=== PATIENT | female | born 1960 ===

== ENCOUNTER 2017-03-29 16:22 | Inpatient (IN) ==
[2017-03-29] MEDS ORDERED: CLINDAMYCIN INJ 600 MG in PREMIX 1 EACH IV STA (17:17)
--- NOTE | 2017-03-29 17:27 | Emergency Department Note ---
Ruben Rich Rolonda, am scribing for, and in the presence of, Osito Petty MD 17:23. Jovanny Rich Phillip K, MD, personally performed the services described in this documentation, ascribed by Bonnie Miranda in my presence, and it is both accurate and complete 727 . Arrival - Arrival Chief Complaint: Extremity Problem ED Nursing Triage Note: Transfer from [facility] for c/o swelling to right leg (ulcer, swelling, poss. dvt.). patient states that she is out of diabetic meds and htn meds Mode of Arrival: Stretcher Limitations: No Limitations Source: Patient, Old Records Reviewed, RN Notes Reviewed - History of Present Illness HPI Narrative: Pt is a 56 y/o female who was transferred from [facility] presents to the ED via wheelchair with c/o right leg swelling with an onset of last night. Pt has PMH of DM. SPANISHER her blood sugar was 400; at time of triage it was 221. Pt confirms subjective fever and swelling. No other complaint/pain in ED. Onset (ago): day(s) Consistency: constant Severity: moderate Severity scale (1-10): 3 Allergies/Adverse Reactions: Allergies Allergy/AdvReac Type Severity Reaction Status Date / Time No Known Allergies Allergy Unverified 07/20/16 13:30 Home Medications: Home Medications Medication Instructions Recorded Confirmed Type Aspirin [Ecotrin] 81 mg PO DAILY 07/20/16 07/20/16 History Chlorthalidone [Hygroton] 25 mg PO DAILY 07/20/16 07/20/16 History Glimepiride 4 mg PO DAILY 07/20/16 07/20/16 History Insulin Detemir [Levemir FlexPen] 20 unit SUBCUT BEDTIME 07/20/16 07/20/16 History Loperamide HCl [Loperamide] 2 mg PO Q6-8H PRN 07/20/16 07/20/16 History Metoprolol Succinate Xl [Toprol Xl] 25 mg PO BEDTIME 07/20/16 07/20/16 History Multivitamin [Multivitamins] 1 each PO DAILY 07/20/16 07/20/16 History Saxagliptin HCl [Onglyza] 10 mg PO DAILY 07/20/16 07/20/16 History Simvastatin [Zocor] 10 mg PO BEDTIME 07/20/16 07/20/16 History metFORMIN [Glucophage] 1,000 mg PO BID W/MEALS 07/20/16 07/20/16 History HYDROcodone/ACETAMIN 7.5-325 1 tablet PO Q4H PRN #30 tablet 07/22/16 Rx [[place] 7.5-325] Review of System - Review of System 12 point system: reviewed and no additional remarkable complaints except as stated - Review of System Constitutional: Present: fever (subjective). Absent: chills Respiratory: Absent: cough, respiratory distress Cardiovascular: Absent: chest pain, dyspnea on exertion Gastrointestinal: Absent: abdominal pain, nausea, vomiting, diarrhea Musculoskeletal: Present: joint swelling (right lower leg), leg pain (right lower leg pain) Medical,Surgical,& Family Hx - Medical History Cardio: History of: Hypertension Neurology: No history of: Seizures Endocrine: History of: Diabetes Mellitus (IDDM), Dyslipidemia Other: History of: MRSA (left leg) No history of: Anesthesia Reactions - Surgical History Abdominal Surgeries: Surgical HX of: Appendectomy, Cholecystectomy - Family History Family History: Reports;: Family Cancer (mother), Family Diabetes (sister), Family Hypertension (sister) - Social History Smoking Status: Current some day smoker Frequency of Alcohol Use: Occasionally Type of Drug Use: None Exam Vital Signs: Vital Signs Temperature 96.7 F L 03/29/17 17:17 Pulse Rate 60 03/29/17 17:17 Respiratory Rate 19 03/29/17 17:17 Blood Pressure 191/64 03/29/17 17:17 O2 Sat by Pulse Oximetry 97 03/29/17 16:31 - General General appearance: alert, in no apparent distress - Head Head exam: Present: atraumatic, normocephalic - Eye Eye exam: Present: normal appearance, PERRL, EOMI - ENT ENT exam: Present: mucous membranes moist. Absent: mucous membranes dry - Neck Neck exam: Present: full ROM. Absent: tenderness - Chest Chest inspection: Present: symmetric chest wall rise. Absent: tenderness - Respiratory Respiratory exam: Present: normal lung sounds bilaterally. Absent: rales - Cardiovascular Cardiovascular exam: Present: regular rate, normal rhythm, normal heart sounds. Absent: tachycardia - Abdominal Exam Abdominal exam: Present: soft, normal bowel sounds. Absent: tenderness - Extremities Exam Extremities exam: Absent: normal inspection (1cm diabetic ulcer to inner aspect of right leg medial to tibia; warmth; swelling) - Neurological Exam Neurological exam: Present: alert, oriented X3, CN II-XII intact - Psychiatric Psychiatric exam: Present: normal affect, normal mood - Skin Skin exam: Present: erythema (surrounding diabetic ulcer on inner aspect of right leg medial to tibia). Absent: intact, normal color Results - Labs Lab Results: I have reviewed the patients labs (I reviewed the labs from [facility]. She had a blood glucose of 400 and was given some insulin and her glucose on arrival here was 212. Patient had a normal white blood count. Will obtain blood cultures and start IV antibiotics. We will also get a Doppler of the right leg however I doubt DVT.) Disposition Clinical Impression: Diabetic ulcer of right lower leg, Cellulitis, Poorly controlled diabetes mellitus Case discussed with: patient Disposition: Still a Patient Condition: Guarded Additional Instructions: Admit to the hospitalist.
[2017-03-29] MEDS ORDERED: CLINDAMYCIN INJ 50 ML IV ONE (17:38)
[2017-03-29 17:41] LABS: Basophils % 0.4 % (0.0-0.8); Eosinophils # 0.1 10*3/uL (0.0-0.87); Eosinophils % 1.5 % (0.00-10.9); Hematocrit 38.5 VOL% (35.7-47.0); Hemoglobin 13.2 GM/DL (12.0-16.0); Immature Granulocytes % 0.4 %; Immature Granulocytes Absolute 0.03 #; Lymphocytes # 2.2 10*3/uL (1.4-4.0); Lymphocytes % 28.4 % (21.3-54.2); Mean Corpuscular HGB Conc 34.3 GM/DL (32-36); Mean Corpuscular Hemoglobin 31 PG (27-34); Mean Platelet Volume 10.3 FL (9.6-12.0); Monocytes # 0.7 10*3/uL (0.11-0.8); Monocytes % 9.4 % (1.7-12.7); Neutrophils # 4.7 10*3/uL (1.4-7.4); Neutrophils % 59.9 % (38.7-73.9); Platelet Count 217 T/CUMM (130-400); Red Blood Count 4.28 MC/CUMM (3.8-5.5); Red Cell Distribution Width 12.3 % (9.3-17.3); White Blood Count 7.9 T/CUMM (4-12)
[2017-03-29 17:51] LABS: Albumin 3.6 G/DL (3.4-5.0); Bilirubin,Total 0.4 MG/DL (0.2-1.0); Calcium 8.7 MG/DL (8.5-10.1); Osmolality,Calculated 291.1 MOS/KG (273-304); Potassium 3.7 MMOL/L (3.5-5.1); Total Protein 7.1 G/DL (6.4-8.3)
--- NOTE | 2017-03-29 17:51 | XRay Report ---
Portable chest Date: 03/29/2017 Clinical history: Shortness of breath, fever Comparison: 07/20/2016 Technique: Portable AP sitting chest Findings: The heart is minimally enlarged. Calcified granulomata/nodes with chronic scarring. Minimal accentuation of the pulmonary interstitium. No pleural effusion. Degenerative changes are noted with stable mediastinum. Impression: Minimal cardiomegaly with chronic scarring and findings which can be seen with mild pneumonitis. PROCEDURE INTERPRETED AT [facility] DEPARTMENT OF RADIOLOGY Final Report Signed by: Dr. Chrissie Zhu
--- NOTE | 2017-03-29 17:58 | XRay Report ---
Exam: XR tibia fibula RT Date: 03/29/2017 5:26 PM Comparison: None Indication: Leg pain, ulcer Technique:[AP and lateral right lower leg] Findings: Minimal joint space narrowing with osteophytes including calcaneal osteophytes. Soft tissue calcifications with soft tissue swelling. No fracture or dislocation. Impression: Minimal DJD with no fracture or dislocation. Calcaneal osteophytes. Soft tissue swelling/calcifications. PROCEDURE INTERPRETED AT [facility] DEPARTMENT OF RADIOLOGY Final Report Signed by: Dr. Chrissie Zhu
--- NOTE | 2017-03-29 18:45 | Hospitalist History & Physical ---
Assessment and Plan (1) Cellulitis Status: Acute Assessment and plan: We will consult wound care to evaluate the left lower leg wound. Venous Doppler studies have been ordered in the ED however results are not available. We will continue empiric antibiotic coverage and obtain wound cultures for culture and sensitivity. Current Visit: Yes (2) Diabetic ulcer of right lower leg Status: Acute Current Visit: Yes (3) Poorly controlled diabetes mellitus Status: Acute Assessment and plan: By her own admission the patient reports that she largely noncompliant. She reports that she has been out of her medications for several days. We will obtain hemoglobin A1c, start Accu-Cheks with sliding scale coverage and consult protective signal installer to assist in the management of the patient during the clinical encounter. Current Visit: Yes (4) Hypertension, essential Status: Acute Assessment and plan: Blood pressure was grossly elevated at the time of ED presentation. We will resume home medications as previously ordered. Current Visit: No History of Present Illness Chief complaint: Right leg edema History of present illness: This is a very pleasant 56-year-old female that presented to the ED at [facility] this afternoon as a lateral transfer from the [facility] for the evaluation of edema to the right lower leg. The patient has a very complex medical history significant for: Hypertension, diabetes, morbid obesity, nicotine addiction, and methicillin resistant Staphylococcus aureus. Patient has a surgical history significant for appendectomy and cholecystectomy. The patient reported the onset of symptoms on last night. She noted that her right leg started to swell excessively and became very painful. In addition, the patient reported that she is out of all of her normal medications. She decided to present to the emergency room at the [facility] for further evaluation. The patient was seen and assessed there. At the time of ED presentation at the [facility], the patient was noted to be grossly hyperglycemic with a blood sugar of 400. There was concern for possible deep vein thrombosis. The patient was subsequently transferred to [facility] for further evaluation. The patient was assessed at the time of ED presentation. Her blood glucose close level was noted at 221. She was also noted to be grossly hypertensive with a blood pressure noted at 191/64. Labs were obtained; complete blood cell count was essentially unremarkable; WBCs were noted at 7.9, hemoglobin 13.2, hematocrit 38.5, and platelet count at 217. Chemistry panel reported a sodium at 142, potassium 3.7, chloride 109, carbon dioxide 27, BUN 20, creatinine 0.7, and glucose at 204. Chest x-ray reported minimal cardiomegaly with chronic scarring of findings which could be seen with mild pneumonitis. No pleural effusion or degenerative changes were noted with stable mediastinum. Right tibia-fibula x-ray was obtained which reported minimal degenerative joint disease with no fracture or dislocation, calcaneal osteophytes, and soft tissue swelling/calcifications. After brief discussion with both Dr. Petty and Dr. Doshi, the patient will be admitted to the hospitalist services for continuation of care. Home Medications Medication Instructions Recorded Confirmed Type Aspirin [Ecotrin] 81 mg PO DAILY 07/20/16 07/20/16 History Chlorthalidone [Hygroton] 25 mg PO DAILY 07/20/16 07/20/16 History Glimepiride 4 mg PO DAILY 07/20/16 07/20/16 History Insulin Detemir [Levemir FlexPen] 20 unit SUBCUT BEDTIME 07/20/16 07/20/16 History Loperamide HCl [Loperamide] 2 mg PO Q6-8H PRN 07/20/16 07/20/16 History Metoprolol Succinate Xl [Toprol Xl] 25 mg PO BEDTIME 07/20/16 07/20/16 History Multivitamin [Multivitamins] 1 each PO DAILY 07/20/16 07/20/16 History Saxagliptin HCl [Onglyza] 10 mg PO DAILY 07/20/16 07/20/16 History Simvastatin [Zocor] 10 mg PO BEDTIME 07/20/16 07/20/16 History metFORMIN [Glucophage] 1,000 mg PO BID W/MEALS 07/20/16 07/20/16 History HYDROcodone/ACETAMIN 7.5-325 1 tablet PO Q4H PRN #30 tablet 07/22/16 Rx [[place] 7.5-325] Allergies Allergy/AdvReac Type Severity Reaction Status Date / Time No Known Allergies Allergy Unverified 07/20/16 13:30 Medical,Surgical,& Family Hx - Medical History Cardio: History of: Hypertension Neurology: No history of: Seizures Endocrine: History of: Diabetes Mellitus (IDDM), Dyslipidemia Other: History of: MRSA (left leg) No history of: Anesthesia Reactions - Surgical History Abdominal Surgeries: Surgical HX of: Appendectomy, Cholecystectomy - Family History Family History: Reports;: Family Cancer (mother), Family Diabetes (sister), Family Hypertension (sister) - Social History Smoking Status: Current some day smoker Frequency of Alcohol Use: Occasionally Type of Drug Use: None 12 point system: reviewed and no additional remarkable complaints except as stated Exam - Constitutional Vitals: Period Temp Pulse Resp BP Sys/Wild Pulse Ox Last 24 Hr 96.7 F-96.7 F 54-60 17-19 148-191/54-64 97-99 General appearance: morbidly obese - Head Head exam: Present: normal inspection, normocephalic, atraumatic - Eye Eye exam: Present: EOMI. Absent: conjunctival injection, nystagmus Pupils: Present: MATTHEW, normal accommodation - ENT ENT exam: Present: normal exam, normal external ear exam, normal oropharynx - Neck Neck exam: Present: normal inspection. Absent: lymphadenopathy, meningismus, thyromegaly - Respiratory Respiratory exam: Present: clear to auscultation bilaterally - Cardiovascular Cardiovascular exam: Present: regular rate and rhythm. Absent: carotid bruit, diastolic murmur, gallop, JVD, rubs, systolic murmur - GI/Abdominal GI/Abdominal exam: Present: normal bowel sounds, soft - Extremities Exam Extremities exam: Present: other (Diabetic ulceration noted to the right leg) - Back Exam Back exam: Present: normal inspection - Neurological Exam Neurological exam: Present: alert, oriented X3, CN II-XII intact - Psychiatric Psychiatric exam: Present: normal mood - Skin Skin exam: Present: warm, dry Results - Labs CBC & BMP: 03/29/17 17:04 03/29/17 17:04 Lab Results: I have reviewed the past 24 hour labs
[2017-03-29] MEDS ORDERED: DEXTROSE 50% 25 GM/50 ML VIAL IV PRN (18:51)
[2017-03-29] MEDS ORDERED: NICOTINE 21 MG/24 HR PATCH TRANSDERM PRN (18:51)
[2017-03-29] MEDS ORDERED: GLUCAGON 1 MG VIAL IM PRN (18:51)
--- NOTE | 2017-03-29 19:28 | Ultrasound Report ---
Exam: Right lower extremity venous Doppler/duplex ultrasound Comparison: 03/01/2012 Clinical history: Right leg pain Technique: Duplex scan of the right lower extremity veins using th B- mode/grayscale imaging and Dopplers spectral analysis and color flow. Findings: There is normal compression and augmentation of the right common femoral, superficial femoral and popliteal veins. The proximal right greater saphenous veins appear to be patent. Major venous structures of the right lower extremity demonstrating normal course and caliber with normal color-flow study and spectral analysis. Impression: No evidence to suggest deep venous thrombosis within the right lower extremity. Ultrasound images were captured and stored. PROCEDURE INTERPRETED AT [facility] DEPARTMENT OF RADIOLOGY Final Report Signed by: Dr. Chrissie Zhu
[2017-03-29] MEDS: INSULIN REGULAR 100 UNIT/ML SUBCUT SCH (22:51)
[2017-03-29] MEDS: ENOXAPARIN 40 MG/0.4 ML SYRINGE SUBCUT SCH (22:54)
[2017-03-29] MEDS: DOCUSATE SODIUM 100 MG CAPSULE PO SCH (22:54)
[2017-03-29] MEDS: cefTRIAXone 1,000 MG in SODIUM CHLORIDE 0.9% 100 ML IV SCH (22:55)
[2017-03-29] MEDS: SODIUM CHLORIDE 0.9% 1,000 ML IV SCH (22:58)
[2017-03-30] MEDS: CLINDAMYCIN INJ 600 MG in PREMIX 1 EACH IV SCH ×3 (02:05→17:04)
[2017-03-30 05:12] LABS: Basophils % 0.3 % (0.0-0.8); Eosinophils # 0.1 10*3/uL (0.0-0.87); Eosinophils % 1.8 % (0.00-10.9); Hematocrit 35.2 VOL% (35.7-47.0); Immature Granulocytes % 0.4 %; Immature Granulocytes Absolute 0.03 #; Lymphocytes # 2.4 10*3/uL (1.4-4.0); Lymphocytes % 35.4 % (21.3-54.2); Mean Corpuscular HGB Conc 34.1 GM/DL (32-36); Mean Corpuscular Hemoglobin 31 PG (27-34); Mean Corpuscular Volume 90.3 FL (87-102); Mean Platelet Volume 10.4 FL (9.6-12.0); Monocytes # 0.6 10*3/uL (0.11-0.8); Monocytes % 9.4 % (1.7-12.7); Neutrophils # 3.5 10*3/uL (1.4-7.4); Neutrophils % 52.7 % (38.7-73.9); Platelet Count 186 T/CUMM (130-400); Red Cell Distribution Width 12.4 % (9.3-17.3); White Blood Count 6.7 T/CUMM (4-12)
[2017-03-30 05:56] LABS: Albumin 2.8 G/DL (3.4-5.0); Bilirubin,Total 0.4 MG/DL (0.2-1.0); Calcium 8.1 MG/DL (8.5-10.1); Magnesium 2.1 MG/DL (1.8-2.4); Osmolality,Calculated 300.8 MOS/KG (273-304); Risk Ratio 3.71; Thyroid Stimulating Hormone 2.62 uIU/ml (0.358-3.74); Total Protein 5.9 G/DL (6.4-8.3); VLDL CHOLESTEROL 27.2 MG/DL
[2017-03-30] MEDS: INSULIN REGULAR 100 UNIT/ML SUBCUT SCH ×4 (09:01→21:36)
[2017-03-30] MEDS: SODIUM CHLORIDE 0.9% 1,000 ML IV SCH ×3 (09:02→18:23)
[2017-03-30] MEDS: PANTOPRAZOLE 40 MG TABLET PO SCH (09:02)
[2017-03-30] MEDS: DOCUSATE SODIUM 100 MG CAPSULE PO SCH ×2 (09:02→21:38)
--- NOTE | 2017-03-30 09:14 | Hospitalist Progress Note ---
<Ghislaine Barrera - Last Filed: 03/30/17 09:11> Assessment and Plan (1) Cellulitis Status: Acute Assessment and plan: We will consult wound care to evaluate the right lower leg wound. Venous Doppler studies have been ordered in the ED however results are not available. We will continue empiric antibiotic coverage and obtain wound cultures for culture and sensitivity. 03/30-venous Doppler studies were negative for DVT in the right lower leg. Wound care has been consulted to evaluate the right lower leg wound. We will continue empiric antibiotic coverage. Current Visit: Yes (2) Diabetic ulcer of right lower leg Status: Acute Assessment and plan: Ulceration of the right lower leg is chronic in nature. We will continue empiric antibiotic coverage and consult wound care to evaluate and advise. Current Visit: Yes (3) Poorly controlled diabetes mellitus Status: Acute Assessment and plan: By her own admission the patient reports that she largely noncompliant. She reports that she has been out of her medications for several days. We will obtain hemoglobin A1c, start Accu-Cheks with sliding scale coverage and consult family living educator to assist in the management of the patient during the clinical encounter. 03/30-hemoglobin A1c was noted at 9.5; which is evidence suggesting noncompliance. Fasting blood sugar this a.m. was noted at 324. We will restart Levemir 20 units at bedtime and continue Accu-Cheks with sliding scale coverage. Current Visit: Yes (4) Hypertension, essential Status: Acute Assessment and plan: Blood pressure was grossly elevated at the time of ED presentation. We will resume home medications as previously ordered. Current Visit: No Hospitalist: Subjective Interval history: Patient seen and examined; chart reviewed. No significant overnight events. Hemoglobin A1c was noted at 9.5. Blood sugars were markedly elevated throughout the night with fasting blood sugar noted at 324. Exam - Constitutional Vitals: Period Temp Pulse Resp BP Sys/Wild Pulse Ox Last 24 Hr 96.7 F-97.4 F 54-60 17-20 148-194/54-73 97-99 General appearance: morbidly obese - Head Head exam: Present: normal inspection, normocephalic, atraumatic - Eye Eye exam: Present: EOMI, conjunctival injection Pupils: Present: MATTHEW, normal accommodation - ENT ENT exam: Present: normal exam, normal external ear exam, normal oropharynx - Neck Neck exam: Present: normal inspection, lymphadenopathy, meningismus, thyromegaly - Respiratory Respiratory exam: Present: clear to auscultation bilaterally. Absent: rales, rhonchi, stridor, wheezes - Cardiovascular Cardiovascular exam: Present: regular rate and rhythm. Absent: bradycardia, carotid bruit, diastolic murmur, JVD, systolic murmur - GI/Abdominal GI/Abdominal exam: Present: normal bowel sounds, soft - Extremities Exam Extremities exam: Present: edema (+2 edema noted to the right lower leg), other (Ulceration noted to right lower leg) - Back Exam Back exam: Present: normal inspection - Neurological Exam Neurological exam: Present: alert, oriented X3, CN II-XII intact - Psychiatric Psychiatric exam: Present: normal affect, normal mood - Skin Skin exam: Present: normal color, warm, other (Ulceration noted to right lower leg) Results - Labs CBC & BMP: 03/30/17 04:52 03/30/17 04:52 Lab Results: I have reviewed the past 24 hour labs Quality Measures - VTE Contraindication to Mechanical VTE Prophylaxis: Vascular Ulceration <Eduardo Rollins - Last Filed: 03/30/17 13:23> Hospitalist: Subjective Interval history: Patient seen and examined independently of HONORIO Barrera, agree with assessment and plan as documented. Patient without complaints. Reports that her leg looks better to her. Exam - Constitutional Vitals: Period Temp Pulse Resp BP Sys/Wild Pulse Ox Last 24 Hr 96.4 F-98.6 F 52-70 17-20 126-194/54-75 96-99 Results - Labs CBC & BMP: 03/30/17 04:52 03/30/17 04:52
[2017-03-30] MEDS ORDERED: SKIN HEALING OINT (AQUAPHOR) 50 GM TUBE TOP PRN (14:58)
[2017-03-30] MEDS ORDERED: METOPROLOL SUCCINATE XL 25 MG TABLET PO SCH (21:00)
[2017-03-30] MEDS ORDERED: INSULIN GLARGINE 100 UNIT/ML SUBCUT SCH ×2 (21:00)
[2017-03-30] MEDS: ENOXAPARIN 40 MG/0.4 ML SYRINGE SUBCUT SCH (21:36)
[2017-03-30] MEDS: cefTRIAXone 1,000 MG in SODIUM CHLORIDE 0.9% 100 ML IV SCH (21:37)
[2017-03-31] MEDS: CLINDAMYCIN INJ 600 MG in PREMIX 1 EACH IV SCH ×2 (03:06→12:36)
[2017-03-31] MEDS: SODIUM CHLORIDE 0.9% 1,000 ML IV SCH (03:08)
[2017-03-31 05:39] LABS: Basophils % 0.3 % (0.0-0.8); Eosinophils # 0.1 10*3/uL (0.0-0.87); Eosinophils % 2.2 % (0.00-10.9); Hematocrit 35.3 VOL% (35.7-47.0); Hemoglobin 11.9 GM/DL (12.0-16.0); Immature Granulocytes % 0.2 %; Immature Granulocytes Absolute 0.01 #; Lymphocytes # 2.6 10*3/uL (1.4-4.0); Lymphocytes % 40.3 % (21.3-54.2); Mean Corpuscular HGB Conc 33.7 GM/DL (32-36); Mean Corpuscular Hemoglobin 31 PG (27-34); Mean Corpuscular Volume 90.7 FL (87-102); Mean Platelet Volume 10.8 FL (9.6-12.0); Monocytes # 0.6 10*3/uL (0.11-0.8); Monocytes % 8.5 % (1.7-12.7); Neutrophils # 3.2 10*3/uL (1.4-7.4); Neutrophils % 48.5 % (38.7-73.9); Platelet Count 210 T/CUMM (130-400); Red Blood Count 3.89 MC/CUMM (3.8-5.5); Red Cell Distribution Width 12.7 % (9.3-17.3); White Blood Count 6.5 T/CUMM (4-12)
[2017-03-31 06:00] LABS: Calcium 8.3 MG/DL (8.5-10.1); Magnesium 2.1 MG/DL (1.8-2.4); Osmolality,Calculated 293.7 MOS/KG (273-304)
[2017-03-31] MEDS ORDERED: MULTIVITAMIN (CENTRUM) TABLET PO SCH (09:00)
[2017-03-31] MEDS: INSULIN REGULAR 100 UNIT/ML SUBCUT SCH ×2 (09:04→12:37)
[2017-03-31] MEDS: DOCUSATE SODIUM 100 MG CAPSULE PO SCH (09:05)
[2017-03-31] MEDS: PANTOPRAZOLE 40 MG TABLET PO SCH (09:05)
--- NOTE | 2017-03-31 10:06 | Discharge Summary ---
<Ghislaine Barrera - Last Filed: 03/31/17 09:58> Hospital Course - Hospital Course Hospital Course: This is a very pleasant 56-year-old female that presented to the ED at [facility] this afternoon as a lateral transfer from the [facility] for the evaluation of edema to the right lower leg. The patient has a very complex medical history significant for: Hypertension, diabetes, morbid obesity, nicotine addiction, and methicillin resistant Staphylococcus aureus. Patient has a surgical history significant for appendectomy and cholecystectomy. The patient reported the onset of symptoms on last night. She noted that her right leg started to swell excessively and became very painful. In addition, the patient reported that she is out of all of her normal medications. She decided to present to the emergency room at the [facility] for further evaluation. The patient was seen and assessed there. At the time of ED presentation at the [facility], the patient was noted to be grossly hyperglycemic with a blood sugar of 400. There was concern for possible deep vein thrombosis. The patient was subsequently transferred to [facility] for further evaluation. The patient was assessed at the time of ED presentation. Her blood glucose close level was noted at 221. She was also noted to be grossly hypertensive with a blood pressure noted at 191/64. Labs were obtained; complete blood cell count was essentially unremarkable; WBCs were noted at 7.9, hemoglobin 13.2, hematocrit 38.5, and platelet count at 217. Chemistry panel reported a sodium at 142, potassium 3.7, chloride 109, carbon dioxide 27, BUN 20, creatinine 0.7, and glucose at 204. Chest x-ray reported minimal cardiomegaly with chronic scarring of findings which could be seen with mild pneumonitis. No pleural effusion or degenerative changes were noted with stable mediastinum. Right tibia-fibula x-ray was obtained which reported minimal degenerative joint disease with no fracture or dislocation, calcaneal osteophytes, and soft tissue swelling/calcifications. She was admitted to the hospitalist services for continuation of care. Empiric antibiotics were initiated. A wound care consultation was ordered. Hemoglobin A1c was noted at 9.5; consultation was made to the informatics educator. The patient's condition gradually improved. The patient has not experienced any significant overnight events. Her vital signs are stable. Today, we feel that she is indeed appropriate for discharge to follow-up with her primary care physician and wound care clinic as directed. Diagnosis - Discharge Diagnosis (1) Cellulitis Status: Acute (2) Diabetic ulcer of right lower leg Status: Acute (3) Poorly controlled diabetes mellitus Status: Acute (4) Hypertension, essential Status: Acute Discharge Plan - Discharge Data Disposition: Disch To Home/Self Care - Discharge Medications New Clindamycin Cap [Cleocin Cap] 600 mg PO Q8HR #30 capsule HYDROcodone/ACETAMIN 5-325 [[place] 5-325] 1 tablet PO Q4H PRN #20 tablet PRN Reason: Pain Mild (1-3) Continue Simvastatin [Zocor] 10 mg PO BEDTIME Saxagliptin HCl [Onglyza] 10 mg PO DAILY metFORMIN [Glucophage] 1,000 mg PO BID W/MEALS Metoprolol Succinate Xl [Toprol Xl] 25 mg PO BEDTIME Glimepiride 4 mg PO DAILY Aspirin [Ecotrin] 81 mg PO DAILY Insulin Detemir [Levemir FlexPen] 20 unit SUBCUT BEDTIME Multivitamin [Multivitamins] 1 each PO DAILY - Follow Up or Referral - Forms/Instructions Exam - Constitutional Vitals: Period Temp Pulse Resp BP Sys/Wild Pulse Ox Last 24 Hr 96.4 F-98.1 F 51-70 16-20 125-157/60-77 94-98 Discharge Results Procedures and tests throughout hospitalization: Pending Orders 03/29/17 17:53 Blood Culture Stat Labs on day of discharge: Labs from last 24 hours 03/31/17 03/31/17 03/31/17 07:15 04:26 04:26 WBC 6.5 RBC 3.89 Hgb 11.9 L Hct 35.3 L MCV 90.7 MCH 31 MCHC 33.7 RDW 12.7 Plt Count 210 MPV 10.8 Neut % (Auto) 48.5 Lymph % (Auto) 40.3 Mclennan % (Auto) 8.5 Eos % (Auto) 2.2 Baso % (Auto) 0.3 Neut # (Auto) 3.2 Lymph # (Auto) 2.6 Mclennan # (Auto) 0.6 Eos # (Auto) 0.1 Baso # (Auto) 0.0 Immature Gran % 0.2 Nucleated RBC % 0.0 Immature Gran # 0.01 Nucleated RBCs # 0.00 Sodium 145 Potassium 4.0 Chloride 111 H Carbon Dioxide 26 Anion Gap 12.0 BUN 17 Creatinine 0.70 GFR Calculation 118 BUN/Creatinine Ratio 24.00 H Glucose 168 H POC Glucose 199 H Calculated Osmolality 293.7 Calcium 8.3 L Magnesium 2.1 03/30/17 03/30/17 03/30/17 21:23 15:56 11:34 WBC RBC Hgb Hct MCV MCH MCHC RDW Plt Count MPV Neut % (Auto) Lymph % (Auto) Mclennan % (Auto) Eos % (Auto) Baso % (Auto) Neut # (Auto) Lymph # (Auto) Mclennan # (Auto) Eos # (Auto) Baso # (Auto) Immature Gran % Nucleated RBC % Immature Gran # Nucleated RBCs # Sodium Potassium Chloride Carbon Dioxide Anion Gap BUN Creatinine GFR Calculation BUN/Creatinine Ratio Glucose POC Glucose 260 H 297 H 239 H Calculated Osmolality Calcium Magnesium Preliminary micro results at discharge 03/29/17 17:53 Blood Culture - Preliminary Blood No growth at 1 day 03/29/17 18:15 Blood Culture - Preliminary Blood No growth at 1 day DS: Provider Date of admission: 03/29/17 18:32 Primary care physician: Clarisas Villanueva MD Attending physician on admission: Dale Barroso MD Consults: 03/29/17 18:53 Consult to Diabetes Center, Educator [CONS] Routine Reason for Sap Bods Developer: Diabetes Education Consult to Wound Care [facility] [CONS] Routine Reason for Wound Care: Wound Care Management 03/29/17 21:25 Consult to Pastoral Services [CONS] Routine Comment: Pastoral Screen: Declines Visit Request Disposal Operator Visit Gabby Issues Discharging clinician: Ghislaine Barrera CNP <Eduardo Rollins - Last Filed: 03/31/17 10:58> Hospital Course - Time spent with patient Time with patient DS: Less than 30 minutes (28) Diagnosis - Discharge Diagnosis (1) DM2 (diabetes mellitus, type 2) Status: Chronic (2) Hypertension, essential Status: Chronic (3) Cellulitis Status: Resolved Discharge Plan - Discharge Data Condition at Discharge: Stable Discharge Diet: diabetic diet, low salt diet Activity: resume usual activities as tolerated Hygiene: no restrictions Weight Bearing at Discharge: weight bear as tolerated Driving: no restrictions Contact your physician if you experience:: fever over 101, Redness or swelling Exam - Constitutional General appearance: over weight - Head Head exam: Present: normocephalic, atraumatic - Eye Eye exam: Present: EOMI Pupils: Present: MATTHEW - ENT ENT exam: Present: normal exam - Neck Neck exam: Present: normal inspection - Respiratory Respiratory exam: Present: clear to auscultation bilaterally. Absent: rhonchi, wheezes - Cardiovascular Cardiovascular exam: Present: regular rate and rhythm - GI/Abdominal GI/Abdominal exam: Present: normal bowel sounds, soft. Absent: tenderness, rebound - Extremities Exam Extremities exam: Present: other (RLE with improvement of erythema) - Back Exam Back exam: Present: normal inspection - Neurological Exam Neurological exam: Present: alert, oriented X3 - Psychiatric Psychiatric exam: Present: normal affect, normal mood - Skin Skin exam: Present: warm, intact
[2017-03-31 12:48] VITALS: BP 186/75
== END 2017-03-31 13:27 | disposition home or self-care (01) | DRG 638 ==
LOC: EDUNIT# → EDBD → N.ED 16:22 → SUATTDRO 18:32 → N.EDINP 18:32 → N.5E 19:30
PROVIDERS: ADMIT Family Medicine; ATTEND Internal Medicine

== ENCOUNTER 2017-05-21 15:46 | Inpatient (IN) ==
--- NOTE | 2017-05-21 16:39 | Emergency Department Note ---
Arrival - Arrival Chief Complaint: Extremity Problem ED Nursing Triage Note: pt c/o pain and edema to right leg distal to knee x 2 weeks. pt also c/o left hip pain. denies injury. pt was hospitalized 1 month ago for same complaint of RLE. pt also c/o chills and fever today. Mode of Arrival: Stretcher Source: Patient, EMS, Old Records Reviewed, RN Notes Reviewed Time Seen by Provider: 05/21/17 16:20 - History of Present Illness HPI Narrative: The patient is a poor and inconsistent historian. She complains of right knee and lower leg pain and swelling. Onset is unclear. At one point she told me it started yesterday, at another point, 5 days ago and at another, 2 weeks ago. She also complains of left hip pain. Onset of that is unclear as well but sounds like it was prior to the knee pain. She denies any history of injury. She has apparently been admitted here before for similar complaints. She has had some chills and fever with a cough today. She cannot tell me whether or not she has been short of breath. She says that somebody told her she was but she does not know. Allergies/Adverse Reactions: Allergies Allergy/AdvReac Type Severity Reaction Status Date / Time No Known Allergies Allergy Verified 05/21/17 16:04 Home Medications: Home Medications Medication Instructions Recorded Confirmed Type Aspirin [Ecotrin] 81 mg PO DAILY 07/20/16 05/21/17 History Glimepiride 4 mg PO DAILY 07/20/16 05/21/17 History Insulin Detemir [Levemir FlexPen] 20 unit SUBCUT BEDTIME 07/20/16 05/21/17 History Metoprolol Succinate Xl [Toprol Xl] 25 mg PO BEDTIME 07/20/16 05/21/17 History Multivitamin [Multivitamins] 1 each PO DAILY 07/20/16 05/21/17 History Saxagliptin HCl [Onglyza] 10 mg PO DAILY 07/20/16 05/21/17 History Simvastatin [Zocor] 10 mg PO BEDTIME 07/20/16 05/21/17 History metFORMIN [Glucophage] 1,000 mg PO BID W/MEALS 07/20/16 05/21/17 History Clindamycin Cap [Cleocin Cap] 600 mg PO Q8HR #30 capsule 03/31/17 05/21/17 Rx HYDROcodone/ACETAMIN 5-325 [[place] 1 tablet PO Q4H PRN #20 tablet 03/31/17 Rx 5-325] Review of System - Review of System 12 point system: reviewed and no additional remarkable complaints except as stated - Review of System Constitutional: Present: chills, fever Head/Ears/Nose/Throat: Absent: nasal drainage, sore throat Respiratory: Present: cough Cardiovascular: Present: chest pain (Sternal, with deep inspiration only) Gastrointestinal: Present: abdominal pain (Left lower quadrant), diarrhea. Absent: nausea, vomiting Musculoskeletal: Present: back pain, leg pain Medical,Surgical,& Family Hx - Medical History Cardio: History of: Hypertension Psychological: No history of: Anxiety Disorders, ADHD, Behavior Problems, Bipolar Disorder, Depression, Previous Suicide Attempt, Psychiatric/Substance Abuse Tx, Schizophrenia, Violent Behavior, Psychiatric Problems Neurology: No history of: Seizures Endocrine: History of: Diabetes Mellitus (IDDM), Dyslipidemia Other: History of: MRSA (left leg) No history of: Anesthesia Reactions - Surgical History Abdominal Surgeries: Surgical HX of: Appendectomy, Cholecystectomy - Family History Family History: Reports;: Family Cancer (mother), Family Diabetes (sister), Family Hypertension (sister) - Social History Smoking Status: Current some day smoker Frequency of Alcohol Use: None Type of Drug Use: None Exam Physical Examination: GENERAL: Alert. No acute distress. HEENT: Normocephalic and atraumatic. There is no nasal drainage. No pharyngeal erythema or exudate. NECK: Normal inspection. Supple. No lymphadenopathy or meningismus. LUNGS: No respiratory distress. Clear to auscultation bilaterally, no wheezes, rales or rhonchi. HEART: Regular rate and rhythm. ABDOMEN: Soft, obese, nondistended with normal bowel sounds. Minimal left lower quadrant tenderness without guarding or rebound. BACK: Normal inspection. SKIN: Color normal. Warm and dry. EXTREMITIES: The right lower extremity is tender from the knee to the ankle. It may be slightly larger than the left. The skin color is darker but she has some chronic hyperpigmentation there and it is difficult to detect erythema. The left leg is warmer than the right. The calf is tender and Homans sign is positive. Range of motion in the knee and ankle is full and the distal extremity is neurovascularly intact. There is some mild, inconsistent tenderness over the left hip. No discoloration or deformity noted. Range of motion is full. The distal extremity is neurovascularly intact. NEUROLOGICAL/PSYCHIATRIC: Alert and oriented -3 with normal mood and affect. Cranial nerves normal. No motor or sensory deficit. Vital Signs: Vital Signs Temperature 100.2 F H 05/21/17 20:17 Pulse Rate 87 05/21/17 20:11 Respiratory Rate 20 05/21/17 20:11 Blood Pressure 148/72 05/21/17 20:11 O2 Sat by Pulse Oximetry 95 05/21/17 20:11 Course Course Narrative: Note: The multiple negatives in the past medical history were not marked by me. They are the result of the triage process, past medical records or other unknown causes. Due to time constraints, these were not all reviewed with the patient and the backslashes were not removed from the chart. They should be ignored. - Reevaluation(s) Reevaluation #1: Urine is still pending at this point. She does have some warmth, mild erythema and tenderness to the right lower leg. White count is slightly elevated and she is febrile. I think this is cellulitis that has recurred. I discussed patient with the hospitalist who will see her and admit. Time: 20:25 Results - Labs CBC & BMP: 05/21/17 17:00 05/21/17 17:00 Lab Results: I have reviewed the patients labs - Impressions Chest x-ray shows mild airways disease such as with bronchitis. Doppler shows no evidence of DVT. Disposition Clinical Impression: Cellulitis Case discussed with: patient Disposition: Still a Patient Condition: Stable Time of Disposition: 20:31
[2017-05-21 17:10] LABS: Basophils % 0.3 % (0.0-0.8); Eosinophils % 0.1 % (0.00-10.9); Hematocrit 38.8 VOL% (35.7-47.0); Hemoglobin 13.5 GM/DL (12.0-16.0); Immature Granulocytes % 0.5 %; Immature Granulocytes Absolute 0.06 #; Lymphocytes # 1.1 10*3/uL (1.4-4.0); Lymphocytes % 8.2 % (21.3-54.2); Mean Corpuscular HGB Conc 34.8 GM/DL (32-36); Mean Corpuscular Hemoglobin 31 PG (27-34); Mean Platelet Volume 9.8 FL (9.6-12.0); Monocytes # 0.9 10*3/uL (0.11-0.8); Monocytes % 6.6 % (1.7-12.7); Neutrophils # 10.9 10*3/uL (1.4-7.4); Neutrophils % 84.3 % (38.7-73.9); Platelet Count 195 T/CUMM (130-400); Red Blood Count 4.36 MC/CUMM (3.8-5.5); Red Cell Distribution Width 12.5 % (9.3-17.3)
[2017-05-21 17:34] LABS: Albumin 3.5 G/DL (3.4-5.0); Bilirubin,Total 0.4 MG/DL (0.2-1.0); Calcium 8.5 MG/DL (8.5-10.1); Osmolality,Calculated 282.5 MOS/KG (273-304); Potassium 3.6 MMOL/L (3.5-5.1); Total Protein 7.1 G/DL (6.4-8.3)
--- NOTE | 2017-05-21 17:42 | Ultrasound Report ---
US venous doppler LE RT Indication: Right leg pain and swelling. UNILATERAL (RIGHT) LOWER EXTREMITY VENOUS ULTRASOUND Comparison: 03/29/2017 Findings: Graded grayscale compression, color Doppler and pulsed Doppler ultrasound evaluation of the venous structures performed. Normal compressibility, augmentation and color saturation is present within the right common femoral, superficial femoral, popliteal and proximal greater saphenous veins. Impression: No evidence of DVT. PROCEDURE INTERPRETED AT [facility] DEPARTMENT OF RADIOLOGY Final Report Signed by: Sid Tom M.D.
--- NOTE | 2017-05-21 19:55 | XRay Report ---
XR chest 1V portable Indication: Cough and fever. Chest one view: Comparison 03/29/2017. Heart size is normal. Mediastinal contours unremarkable. No infiltrates are shown. Scattered calcified granulomata and pulmonary hypoinflation noted. There is an element of mild peribronchial thickening centrally. Impression: Mild airways disease such as bronchitis or viral syndrome. PROCEDURE INTERPRETED AT [facility] DEPARTMENT OF RADIOLOGY Final Report Signed by: Sid Tom M.D.
[2017-05-21] MEDS ORDERED: ACETAMINOPHEN 500 MG TABLET ONE (20:14)
[2017-05-21] MEDS ORDERED: ACETAMINOPHEN 500 MG TABLET PO STA (20:17)
[2017-05-21] MEDS ORDERED: MORPHINE 2 MG/1 ML SYRINGE IV PRN (20:29)
[2017-05-21] MEDS ORDERED: PROMETHAZINE 25 MG/1 ML VIAL IM PRN (20:29)
[2017-05-21] MEDS ORDERED: GLUCAGON 1 MG VIAL IM PRN (20:29)
[2017-05-21] MEDS ORDERED: ONDANSETRON 4 MG/2 ML VIAL IV PRN (20:29)
[2017-05-21] MEDS ORDERED: DOCUSATE SODIUM 100 MG CAPSULE PO PRN (20:29)
[2017-05-21] MEDS ORDERED: ZALEPLON 5 MG CAPSULE PO PRN (20:29)
[2017-05-21] MEDS ORDERED: ACETAMINOPHEN 325 MG TABLET PO PRN (20:29)
[2017-05-21] MEDS ORDERED: DEXTROSE 50% 25 GM/50 ML SYRINGE IV PRN (20:29)
[2017-05-21 20:40] LABS: Apearance,Urine CLEAR (Clear); Bacteria,Urine Few /HPF (Few); Bilirubin,Urine Negative (Negative); Blood, Urine Negative (Negative); Glucose,Urine (UA) 150 mg/dL (Negative); Ketones,Urine Negative (Negative); Mucus,Urine Occasional /LPF (Occasional); Nitrite,Urine Positive (Negative); Protein,Urine Negative; RBC,Urine 1 /HPF (0-4); Squamous Epithelial Cell,Urine Occasional /HPF (0-10); Urine Color Yellow (Yellow); Urine Specific Gravity 1.015 (1.001-1.035); Urine Urobilinogen < 2.0 EU/DL (0.2-1.0); WBC,Urine 1 /HPF (0-6)
--- NOTE | 2017-05-21 20:41 | Hospitalist History & Physical ---
Assessment and Plan - Time spent with patient Time spent with patient: Greater than 30 minutes (1) Cellulitis Status: Resolved Assessment and plan: Patient will be admitted for IV antibiotic therapy for right lower extremity cellulitis. She does not meet criteria for sepsis at this time. Will provide pain control and local care. Current Visit: No (2) DM2 (diabetes mellitus, type 2) Status: Chronic Assessment and plan: We will continue her routine home medical therapy with Accu-Cheks and sliding scale insulin. Current Visit: No Qualifiers: Diabetes mellitus complication status: with hyperglycemia Diabetes mellitus group home insulin use: with group home use Qualified Code(s): E11.65 - Type 2 diabetes mellitus with hyperglycemia (3) Hypertension, essential Status: Chronic Assessment and plan: Currently hemodynamically stable. We will continue her current medical regimen. Current Visit: No History of Present Illness Chief complaint: Right leg pain and swelling History of present illness: Ms. Carpenter is a 56 year old female who was hospitalized in March for cellulitis of her lower extremity. She states over the past 2 weeks she has noted increased swelling redness and fever of her right lower extremity. She states that she did not go to the clinic or seek care because they are always closed. She denies any recent antibiotic therapy. She has had some nausea but no vomiting. She had an episode of diarrhea last Tuesday which is resolved. She denies any chest pain, shortness breath, cough, sputum production , dysuria, hematuria, seizures, syncope. Home Medications Medication Instructions Recorded Confirmed Type Aspirin [Ecotrin] 81 mg PO DAILY 07/20/16 05/21/17 History Glimepiride 4 mg PO DAILY 07/20/16 05/21/17 History Insulin Detemir [Levemir FlexPen] 20 unit SUBCUT BEDTIME 07/20/16 05/21/17 History Metoprolol Succinate Xl [Toprol Xl] 25 mg PO BEDTIME 07/20/16 05/21/17 History Multivitamin [Multivitamins] 1 each PO DAILY 07/20/16 05/21/17 History Saxagliptin HCl [Onglyza] 10 mg PO DAILY 07/20/16 05/21/17 History Simvastatin [Zocor] 10 mg PO BEDTIME 07/20/16 05/21/17 History metFORMIN [Glucophage] 1,000 mg PO BID W/MEALS 07/20/16 05/21/17 History Clindamycin Cap [Cleocin Cap] 600 mg PO Q8HR #30 capsule 03/31/17 05/21/17 Rx HYDROcodone/ACETAMIN 5-325 [[place] 1 tablet PO Q4H PRN #20 tablet 03/31/17 Rx 5-325] Allergies Allergy/AdvReac Type Severity Reaction Status Date / Time No Known Allergies Allergy Verified 05/21/17 16:04 Medical,Surgical,& Family Hx - Medical History Cardio: History of: Hypertension Psychological: No history of: Anxiety Disorders, ADHD, Behavior Problems, Bipolar Disorder, Depression, Previous Suicide Attempt, Psychiatric/Substance Abuse Tx, Schizophrenia, Violent Behavior, Psychiatric Problems Neurology: No history of: Seizures Endocrine: History of: Diabetes Mellitus (IDDM), Dyslipidemia Other: History of: MRSA (left leg) No history of: Anesthesia Reactions - Surgical History Abdominal Surgeries: Surgical HX of: Appendectomy, Cholecystectomy - Family History Family History: Reports;: Family Cancer (mother), Family Diabetes (sister), Family Hypertension (sister) - Social History Smoking Status: Former smoker Frequency of Alcohol Use: None Type of Drug Use: None 12 point system: reviewed and no additional remarkable complaints except as stated Exam - Constitutional Vitals: Period Temp Pulse Resp BP Sys/Wild Pulse Ox Last 24 Hr 100.2 F-100.9 F 79-87 18-20 127-148/51-72 95-98 General appearance: no acute distress - Head Head exam: Present: normocephalic, atraumatic - Eye Eye exam: Present: EOMI Pupils: Present: MATTHEW - ENT ENT exam: Present: normal exam - Neck Neck exam: Present: normal inspection - Respiratory Respiratory exam: Present: clear to auscultation bilaterally - Cardiovascular Cardiovascular exam: Present: regular rate and rhythm. Absent: systolic murmur , tachycardia - GI/Abdominal GI/Abdominal exam: Present: normal bowel sounds, soft. Absent: distended, tenderness, rebound - Extremities Exam Extremities exam: Present: other (Tender red swollen right lower extremity with chronic skin changes, no fluctuance or red streaking noted). Absent: calf tenderness, edema - Back Exam Back exam: Present: normal inspection - Neurological Exam Neurological exam: Present: alert, oriented X3, CN II-XII intact - Psychiatric Psychiatric exam: Present: normal affect, normal mood. Absent: agitated, anxious - Skin Skin exam: Present: warm, dry, erythema. Absent: petechiae Results - Labs CBC & BMP: 05/21/17 17:00 05/21/17 17:00 Lab Results: I have reviewed the past 24 hour labs - Diagnostic Findings Procedure: Ultrasound: report reviewed by me
[2017-05-21] MEDS: SIMVASTATIN 10 MG TABLET PO SCH (22:57)
[2017-05-21] MEDS: METOPROLOL SUCCINATE XL 25 MG TABLET PO SCH (22:57)
[2017-05-21] MEDS: ENOXAPARIN 40 MG/0.4 ML SYRINGE SUBCUT SCH (23:01)
[2017-05-21] MEDS: INSULIN GLARGINE 100 UNIT/ML SUBCUT SCH (23:02)
[2017-05-21] MEDS: INSULIN LISPRO 100 UNIT/ML SUBCUT SCH (23:02)
[2017-05-21] MEDS: SODIUM CHLORIDE 0.9% 1,000 ML IV SCH (23:07)
[2017-05-22] MEDS: CEFTAROLINE 600 MG in SODIUM CHLORIDE 0.9% 100 ML IV SCH ×3 (00:27→22:51)
[2017-05-22 05:09] LABS: Basophils % 0.3 % (0.0-0.8); Eosinophils % 0.2 % (0.00-10.9); Hematocrit 36.1 VOL% (35.7-47.0); Hemoglobin 12.3 GM/DL (12.0-16.0); Immature Granulocytes % 0.3 %; Immature Granulocytes Absolute 0.03 #; Lymphocytes # 1.6 10*3/uL (1.4-4.0); Lymphocytes % 18.1 % (21.3-54.2); Mean Corpuscular HGB Conc 34.1 GM/DL (32-36); Mean Corpuscular Hemoglobin 31 PG (27-34); Mean Platelet Volume 10.2 FL (9.6-12.0); Monocytes # 0.9 10*3/uL (0.11-0.8); Monocytes % 10.5 % (1.7-12.7); Neutrophils # 6.2 10*3/uL (1.4-7.4); Neutrophils % 70.6 % (38.7-73.9); Platelet Count 170 T/CUMM (130-400); Red Blood Count 4.01 MC/CUMM (3.8-5.5); Red Cell Distribution Width 12.6 % (9.3-17.3); White Blood Count 8.8 T/CUMM (4-12)
[2017-05-22 05:37] LABS: Calcium 8.1 MG/DL (8.5-10.1); Osmolality,Calculated 286.8 MOS/KG (273-304); Potassium 3.2 MMOL/L (3.5-5.1)
[2017-05-22] MEDS ORDERED: POTASSIUM CHLORIDE 20 MEQ TABLET PO ONE ×2 (08:21→13:13)
[2017-05-22] MEDS: MULTIVITAMIN (CENTRUM) TABLET PO SCH (08:22)
[2017-05-22] MEDS: metFORMIN 500 MG TABLET PO SCH ×2 (08:22→16:36)
[2017-05-22] MEDS: PANTOPRAZOLE 40 MG TABLET PO SCH (08:22)
[2017-05-22] MEDS: ASPIRIN EC 81 MG TABLET PO SCH (08:23)
[2017-05-22] MEDS: INSULIN LISPRO 100 UNIT/ML SUBCUT SCH ×4 (08:23→21:25)
[2017-05-22] MEDS: GLIMEPIRIDE 4 MG TABLET PO SCH (08:23)
[2017-05-22] MEDS: sitaGLIPtin 100 MG TABLET PO SCH (08:23)
[2017-05-22] MEDS: SODIUM CHLORIDE 0.9% 1,000 ML IV SCH (09:29)
--- NOTE | 2017-05-22 13:12 | Hospitalist Progress Note ---
Assessment and Plan (1) Cellulitis Status: Acute Assessment and plan: resolving with teflaro, home in am, blood cx pending Current Visit: Yes (2) Hypertension, essential Status: Chronic Assessment and plan: Controlled with metoprolol Current Visit: No (3) Poorly controlled diabetes mellitus Status: Acute Assessment and plan: hgb A1c 9.6, Continue Amaryl, metformin and Lantus Current Visit: No (4) Hypokalemia Status: Acute Assessment and plan: Replace and recheck in a.m. Current Visit: Yes Hospitalist: Subjective Interval history: Patient had some mild erythema in her right lower extremity but I was not overly impressed. Patient probably can go home tomorrow Exam - Constitutional Vitals: Period Temp Pulse Resp BP Sys/Wild Pulse Ox Last 24 Hr 97.4 F-100.9 F 55-87 17-20 108-148/51-72 95-98 Exam: Heart Rate-[RRR] Lungs-[CTAB] GI-[+bs soft, NT] Ext-[mild erythema in the right lower extremity] Neuro [Motor 5/5], [alert and oriented times 3] psych [normal mood and affect] General [no acute distress] Results - Labs CBC & BMP: 05/22/17 04:40 05/22/17 04:40 Lab Results: I have reviewed the past 24 hour labs Labs: Urine culture negative no growth, blood cultures 2 pending - Diagnostic Findings Procedure: Chest x-ray: report reviewed by me (bronchitis), Ultrasound: report reviewed by me (no dvt)
[2017-05-22] MEDS: METOPROLOL SUCCINATE XL 25 MG TABLET PO SCH (21:25)
[2017-05-22] MEDS: SIMVASTATIN 10 MG TABLET PO SCH (21:25)
[2017-05-22] MEDS: ENOXAPARIN 40 MG/0.4 ML SYRINGE SUBCUT SCH (21:26)
[2017-05-22] MEDS: INSULIN GLARGINE 100 UNIT/ML SUBCUT SCH (21:27)
[2017-05-23 06:22] LABS: Basophils % 0.4 % (0.0-0.8); Eosinophils # 0.2 10*3/uL (0.0-0.87); Eosinophils % 2.5 % (0.00-10.9); Hematocrit 36.7 VOL% (35.7-47.0); Hemoglobin 12.3 GM/DL (12.0-16.0); Immature Granulocytes % 0.4 %; Immature Granulocytes Absolute 0.03 #; Lymphocytes # 2.4 10*3/uL (1.4-4.0); Lymphocytes % 33.7 % (21.3-54.2); Mean Corpuscular HGB Conc 33.5 GM/DL (32-36); Mean Corpuscular Hemoglobin 31 PG (27-34); Mean Corpuscular Volume 91.3 FL (87-102); Mean Platelet Volume 10.4 FL (9.6-12.0); Monocytes # 0.8 10*3/uL (0.11-0.8); Monocytes % 11.7 % (1.7-12.7); Neutrophils # 3.6 10*3/uL (1.4-7.4); Neutrophils % 51.3 % (38.7-73.9); Platelet Count 177 T/CUMM (130-400); Red Blood Count 4.02 MC/CUMM (3.8-5.5); Red Cell Distribution Width 12.9 % (9.3-17.3); White Blood Count 7.1 T/CUMM (4-12)
[2017-05-23 06:44] LABS: Calcium 8.3 MG/DL (8.5-10.1); Potassium 3.9 MMOL/L (3.5-5.1)
[2017-05-23] MEDS: INSULIN LISPRO 100 UNIT/ML SUBCUT SCH (07:10)
[2017-05-23 07:41] VITALS: BP 137/71
[2017-05-23] MEDS: GLIMEPIRIDE 4 MG TABLET PO SCH (08:08)
[2017-05-23] MEDS: sitaGLIPtin 100 MG TABLET PO SCH (08:08)
[2017-05-23] MEDS: ASPIRIN EC 81 MG TABLET PO SCH (08:09)
[2017-05-23] MEDS: PANTOPRAZOLE 40 MG TABLET PO SCH (08:09)
[2017-05-23] MEDS: metFORMIN 500 MG TABLET PO SCH (08:10)
[2017-05-23] MEDS: MULTIVITAMIN (CENTRUM) TABLET PO SCH (08:17)
--- NOTE | 2017-05-23 09:32 | Discharge Summary ---
Hospital Course - Hospital Course Hospital Course: Discharge diagnosis: 1. Cellulitis 2. Multiple diabetic leg ulcers, improved 3. Type II DM The patient presented to the hospital for evaluation of what appeared to be cellulitis of the right lower extremity. By the time she had been seen by yesterday, the cellulitis had resolved. Today, she has a patch that is about 2 or 3 inches in diameter on the medial aspect of the right knee. The patient's main complaint today is a headache, which may be related to her antibiotics. She is apparently ready for discharge. She is up and about in the room. She will need a work excuse for a couple of days. Medication reconciliation has been performed. She apparently already has a prescription for clindamycin, which she can continue at home. ADA diet. Activity as tolerated. Follow-up with local physician. This note was completed using [employer] voice recognition software. 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 Discharge Plan - Discharge Data Disposition: Disch To Home/Self Care Condition at Discharge: Stable Discharge Diet: advance to your usual diet Activity: resume usual activities as tolerated Hygiene: no restrictions Weight Bearing at Discharge: full weight bearing Driving: no restrictions - Discharge Medications Continue Simvastatin [Zocor] 10 mg PO BEDTIME Saxagliptin HCl [Onglyza] 10 mg PO DAILY metFORMIN [Glucophage] 1,000 mg PO BID W/MEALS Metoprolol Succinate Xl [Toprol Xl] 25 mg PO BEDTIME Glimepiride 4 mg PO DAILY Aspirin [Ecotrin] 81 mg PO DAILY Insulin Detemir [Levemir FlexPen] 20 unit SUBCUT BEDTIME Multivitamin [Multivitamins] 1 each PO DAILY Clindamycin Cap [Cleocin Cap] 600 mg PO Q8HR #30 capsule HYDROcodone/ACETAMIN 5-325 [Temple 5-325] 1 tablet PO Q4H PRN #20 tablet PRN Reason: Pain Mild (1-3) - Follow Up or Referral - Forms/Instructions Exam - Constitutional Vitals: Period Temp Pulse Resp BP Sys/Wild Pulse Ox Last 24 Hr 96.8 F-97.7 F 58-71 17-20 109-137/54-77 92-99 Vital signs are noted above. Heart is regular with no murmur or gallop. Lungs are clear with no rales or wheezes. Examination of the extremity shows a few scattered red spots on the right lower extremity. She has some abrasions on the anterior aspect of both shins that are healed. She is awake and alert Discharge Results Procedures and tests throughout hospitalization: Pending Orders 05/21/17 Urine Culture Routine 05/21/17 17:00 Blood Culture Stat 05/22/17 16:43 cdiff [C. Diff Toxins A & B] Routine Labs on day of discharge: Labs from last 24 hours 05/23/17 05/23/17 05/23/17 06:52 05:19 05:19 WBC 7.1 RBC 4.02 Hgb 12.3 Hct 36.7 MCV 91.3 MCH 31 MCHC 33.5 RDW 12.9 Plt Count 177 MPV 10.4 Neut % (Auto) 51.3 Lymph % (Auto) 33.7 [place] % (Auto) 11.7 Eos % (Auto) 2.5 Baso % (Auto) 0.4 Neut # (Auto) 3.6 Lymph # (Auto) 2.4 [place] # (Auto) 0.8 Eos # (Auto) 0.2 Baso # (Auto) 0.0 Immature Gran % 0.4 Nucleated RBC % 0.0 Immature Gran # 0.03 Nucleated RBCs # 0.00 Immature Plt Fraction 0.0 Sodium 143 Potassium 3.9 Chloride 111 H Carbon Dioxide 25 Anion Gap 10.9 BUN 13 Creatinine 0.70 GFR Calculation 118 BUN/Creatinine Ratio 18.00 Glucose 104 POC Glucose 114 H Calculated Osmolality 284.0 Calcium 8.3 L 05/22/17 05/22/17 05/22/17 20:04 16:26 11:21 WBC RBC Hgb Hct MCV MCH MCHC RDW Plt Count MPV Neut % (Auto) Lymph % (Auto) [place] % (Auto) Eos % (Auto) Baso % (Auto) Neut # (Auto) Lymph # (Auto) [place] # (Auto) Eos # (Auto) Baso # (Auto) Immature Gran % Nucleated RBC % Immature Gran # Nucleated RBCs # Immature Plt Fraction Sodium Potassium Chloride Carbon Dioxide Anion Gap BUN Creatinine GFR Calculation BUN/Creatinine Ratio Glucose POC Glucose 143 H 147 H 180 H Calculated Osmolality Calcium Preliminary micro results at discharge 05/21/17 Unknown Urine Culture - Preliminary Urine,Catheterized Gram Positive Cocci Gram Negative Rods Gram Negative Rods#2 05/21/17 17:00 Blood Culture - Preliminary Blood No growth at 1 day 05/21/17 17:00 Blood Culture - Preliminary Blood No growth at 1 day DS: Provider Date of admission: 05/21/17 20:30 Primary care physician: Clarissa Villanueva MD Attending physician on admission: Dale Barroso MD Discharging clinician: Jagdeep Logan MD Expected date of discharge: 05/23/17
--- NOTE | 2017-05-23 09:45 | Event Note ---
RETURN TO WORK Shirlene Carpenter was admitted to [facility] on 05/21/2017, and was discharged on 05/23/2017. She may return to work on 05/24/2017 with no restriction. Jagdeep Logan MD [address] [facility] [place] [id number]
== END 2017-05-23 11:25 | disposition home or self-care (01) | DRG 603 ==
LOC: EDUNIT# → EDBD → N.ED 15:46 → N.EDINP 20:29 → SUATTDRO 20:29 → N.3E 21:53
PROVIDERS: ADMIT Family Medicine; ATTEND Internal Medicine Geriatric Medicine

== ENCOUNTER 2022-06-11 11:21 | Observation (INO) ==
[2022-06-11] MEDS ORDERED: DEXTROSE 10% 250 ML BAG IV PRN (15:29)
[2022-06-11] MEDS ORDERED: GLUCAGON 1 MG VIAL IM PRN (15:29)
[2022-06-11] MEDS ORDERED: ONDANSETRON 4 MG/2 ML VIAL IV PRN (15:35)
[2022-06-11] MEDS ORDERED: NITROGLYCERIN SL 0.4 MG TABLET SL PRN (15:35)
[2022-06-11] MEDS ORDERED: hydrALAZINE 20 MG/1 ML VIAL IV PRN (15:35)
[2022-06-11] MEDS ORDERED: ACETAMINOPHEN 325 MG TABLET PO PRN (15:35)
[2022-06-11] MEDS: SODIUM CHLORIDE 0.9% 1,000 ML IV SCH ×2 (15:57→23:38)
[2022-06-11] MEDS: INSULIN LISPRO 100 UNIT/ML SUBCUT SCH ×2 (15:57→20:39)
[2022-06-11 16:48] LABS: Thyroid Stimulating Hormone 0.973 uIU/ml (0.358-3.74)
[2022-06-11] MEDS: DOCUSATE SODIUM 100 MG CAPSULE PO SCH (20:05)
[2022-06-11 20:37] LABS: Bacteria,Urine Many /HPF (Few); Bilirubin,Urine Negative (Negative); Blood, Urine Negative (Negative); Glucose,Urine (UA) Negative (Negative); Ketones,Urine Negative (Negative); Mucus,Urine Occasional /LPF (Occasional); Nitrite,Urine Negative (Negative); Protein,Urine Trace mg/dL (Negative); Squamous Epithelial Cell,Urine Occasional /HPF (0-10); Urine Appearance Clear (Clear); Urine Color Yellow (Yellow); Urine Specific Gravity 1.015 (1.001-1.035)
[2022-06-11] MEDS ORDERED: ENOXAPARIN 40 MG/0.4 ML SYRINGE SUBCUT SCH (21:00)
[2022-06-11] MEDS ORDERED: cefTRIAXone 1,000 MG in SODIUM CHLORIDE 0.9% 100 ML IV SCH (22:00)
[2022-06-12 05:40] LABS: Basophils % 0.5 % (0.0-0.8); Eosinophils # 0.1 10*3/uL (0.0-0.87); Eosinophils % 2.9 % (0.00-10.9); Hematocrit 35.5 VOL% (35.7-47.0); Hemoglobin 11.2 GM/DL (12.0-16.0); Immature Granulocytes % 0.5 %; Immature Granulocytes Absolute 0.02 #; Lymphocytes # 1.1 10*3/uL (1.4-4.0); Lymphocytes % 26.4 % (21.3-54.2); Mean Corpuscular HGB Conc 31.5 GM/DL (32-36); Mean Corpuscular Volume 92.7 FL (87-102); Mean Platelet Volume 9.7 FL (9.6-12.0); Monocytes # 0.4 10*3/uL (0.11-0.8); Monocytes % 10.2 % (1.7-12.7); Neutrophils % 59.5 % (38.7-73.9); Platelet Count 158 T/CUMM (130-400); Red Blood Count 3.83 MC/CUMM (3.8-5.5); Red Cell Distribution Width 14.8 % (9.3-17.3); White Blood Count 4.2 T/CUMM (4-12)
[2022-06-12 05:58] LABS: Calcium 7.8 MG/DL (8.5-10.1); Osmolality,Calculated 287.7 MOS/KG (273-304); Potassium 3.4 MMOL/L (3.5-5.1)
[2022-06-12] MEDS: POTASSIUM CHLORIDE 20 MEQ TABLET PO PRN ×3 (06:09→10:02)
[2022-06-12] MEDS: SODIUM CHLORIDE 0.9% 1,000 ML IV SCH (06:13)
[2022-06-12 07:20] LABS: Eosinophils 1 % (0-10); Lymphocytes 29 % (20-55); Metamyelocytes 1 %; Platelet Estimate Normal; Total Cells Counted 100
[2022-06-12] MEDS: INSULIN LISPRO 100 UNIT/ML SUBCUT SCH ×2 (08:36→12:48)
[2022-06-12] MEDS: DOCUSATE SODIUM 100 MG CAPSULE PO SCH (08:36)
[2022-06-12] MEDS ORDERED: PANTOPRAZOLE 40 MG TABLET PO SCH (09:00)
[2022-06-12 12:27] VITALS: BP 209/74
[2022-06-12] MEDS ORDERED: amLODIPine 5 MG TABLET PO ONE (12:57)
[2022-06-12] MEDS ORDERED: LOSARTAN 25 MG TABLET PO ONE (13:01)
== END 2022-06-12 13:50 | disposition home or self-care (01) ==
LOC: N.2W → SUATTDRO 13:15
PROVIDERS: ADMIT Internal Medicine; ATTEND Internal Medicine